=== PATIENT | male | born 1945 | race Caucasian/White ===

== ENCOUNTER 2017-11-01 07:26 | Inpatient (IN) | payer OTHER ==
[~2017-11-01] VITALS: Ht 177.8 cm; Wt 79.3 kg
[2017-11-01 08:50] VITALS: BP 158/88
[2017-11-01] MEDS ORDERED: DIVA500T17 PO (08:55)
[2017-11-01] MEDS ORDERED: VERA240T86 PO (08:55)
[2017-11-01] MEDS ORDERED: HYDR25TA6 PO (08:55)
[2017-11-01] MEDS ORDERED: ROSU20TA PO (08:55)
[2017-11-01] MEDS ORDERED: OMEP-110 PO (08:55)
[2017-11-01] MEDS ORDERED: LACTATED RINGERS 1,000 ML IV SCH (09:00)
[2017-11-01] MEDS ORDERED: GABAPENTIN 300 MG CAPSULE PO ONE (09:30)
[2017-11-01] MEDS ORDERED: OxyconTIN ER 10 MG TAB.ER PO ONE (09:30)
[2017-11-01] MEDS ORDERED: ACETAMINOPHEN 500 MG TABLET PO ONE (09:30)
[2017-11-01] MEDS ORDERED: MIDAZOLAM 1 MG/ML, 2ML ONE (09:41)
[2017-11-01] MEDS ORDERED: FENTANYL PF 250 MCG/5ML ONE (09:41)
[2017-11-01] MEDS ORDERED: BUPIVACAINE 0.25% ONE (09:57)
[2017-11-01] MEDS ORDERED: BACITRACIN 50,000 UNIT ONE (09:57)
[2017-11-01] MEDS ORDERED: EPINEPHRINE 1 MG/ML, 1ML ONE (09:57)
[2017-11-01] MEDS ORDERED: THROMBIN 5,000 UNIT VIAL TP ONE (09:57)
[2017-11-01] MEDS ORDERED: DEXAMETHASONE 4 MG/ML, 1ML ONE (10:18)
[2017-11-01] MEDS ORDERED: SUCCINYLCHOLINE 20 MG/ML, 10ML ONE (10:18)
[2017-11-01] MEDS ORDERED: PROPOFOL 10 MG/ML, 20ML ONE (10:18)
[2017-11-01] MEDS ORDERED: CEFAZOLIN 1,000 MG ONE (10:18)
[2017-11-01] MEDS ORDERED: ONDANSETRON 2MG/ML, 2ML ONE (10:18)
[2017-11-01] MEDS ORDERED: PROMETHAZINE 25 MG/ML, 1ML IV PRN (11:00)
[2017-11-01] MEDS ORDERED: HYDROmorphone 1 MG/ML, 1ML IV PRN (11:00)
[2017-11-01] MEDS ORDERED: hydrALAzine 20 MG/ML, 1ML IV PRN (11:00)
[2017-11-01] MEDS ORDERED: OXYcodone 5 MG/5 ML ORAL.SOL UDC PO PRN (11:00)
[2017-11-01] MEDS ORDERED: ALBUTEROL SULFATE 2.5 MG/3 ML NPPB PRN (11:00)
[2017-11-01] MEDS ORDERED: LABETALOL 5MG/ML, 20ML IV PRN ×2 (11:00→14:00)
[2017-11-01] MEDS ORDERED: FENTANYL PF 100 MCG/2ML ONE (12:22)
[2017-11-01] MEDS ORDERED: DIAZEPAM 5 MG TABLET ONE (12:26)
[2017-11-01] MEDS: FENTANYL PF 100 MCG/2ML IV PRN ×2 (12:30→12:50)
[2017-11-01] MEDS ORDERED: DIAZEPAM 5 MG TABLET PO PRN (13:00)
[2017-11-01] MEDS ORDERED: hydrALAzine 20 MG/ML, 1ML ONE (13:15)
[2017-11-01] MEDS ORDERED: METHOCARBAMOL 750 MG TABLET PO PRN (14:00)
[2017-11-01] MEDS ORDERED: MEPERIDINE/PF 100 MG/ML IM PRN (14:00)
[2017-11-01] MEDS ORDERED: DIPHENHYDRAMINE 50 MG CAPSULE PO PRN (14:00)
[2017-11-01] MEDS ORDERED: HYDROcodone/APAP 5/325 TABLET PO PRN (14:00)
[2017-11-01] MEDS ORDERED: ONDANSETRON 2MG/ML, 2ML IV PRN (14:00)
[2017-11-01] MEDS ORDERED: DIPHENHYDRAMINE 50 MG/ML, 1ML IM PRN (14:00)
[2017-11-01] MEDS ORDERED: BISACODYL 10 MG SUPP PR PRN (14:00)
[2017-11-01] MEDS ORDERED: MAGNESIUM HYDROXIDE 8%, 30ML UDC PO PRN (14:00)
[2017-11-01 19:15] VITALS: BP 117/81
[2017-11-01] MEDS: CEFAZOLIN PMX 1GM/50ML 50 ML IVPB SCH (19:36)
[2017-11-01] MEDS: NS + 20MEQ KCL 1,000 ML IV SCH (19:36)
[2017-11-01] MEDS ORDERED: ATORVASTATIN 40 MG TABLET PO SCH (21:00)
[2017-11-02 00:17] VITALS: BP 102/68
[2017-11-02] MEDS: CEFAZOLIN PMX 1GM/50ML 50 ML IVPB SCH (03:55)
[2017-11-02 04:20] VITALS: BP 123/83
[2017-11-02 05:28] LABS: ANION GAP 6 mmol/L (5-15); CALCIUM 9.1 mg/dL (8.5-10.1); CHLORIDE 105 mmol/L (98-107); CREATININE 1.08 mg/dL (0.7-1.3)
[2017-11-02 05:48] LABS: BASOPHILS # (AUTO) 0.02 x10^3/uL (0-0.1); BASOPHILS % (AUTO) 0 % (0-1); EOSINOPHILS # (AUTO) 0.05 x10^3/uL (0-0.4); EOSINOPHILS % (AUTO) 1 % (1-7); LYMPHOCYTES # (AUTO) 1.76 x10^3/uL (1-3.4); LYMPHOCYTES % (AUTO) 20 % (22-44); MD NO; MEAN CORPUSCULAR HEMOGLOBIN 31.1 pg (27.5-34.5); MEAN CORPUSCULAR HGB CONC 33.5 g/dL (33.2-36.2); MEAN PLATELET VOLUME 9.7 fL (7.4-10.4); MONOCYTES # (AUTO) 0.77 x10^3/uL (0.2-0.8); MONOCYTES % (AUTO) 9 % (2-9); NEUTROPHILS # (AUTO) 6.14 x10^3/uL (1.8-6.8); NEUTROPHILS % (AUTO) 70 % (42-75); PLATELET COUNT 168 x10^3/uL (130-400); RED BLOOD COUNT 4.11 x10^6/uL (4.38-5.82); RED CELL DISTRIBUTION WIDTH 13.4 % (9.4-14.8)
[2017-11-02] MEDS ORDERED: OMEPRAZOLE 20 MG CAPSULE.DR PO SCH (07:30)
[2017-11-02 07:43] VITALS: BP 117/78
[2017-11-02] MEDS ORDERED: OXYC-302 PO (08:30)
[2017-11-02] MEDS ORDERED: METH750T87 PO (08:30)
[2017-11-02] MEDS ORDERED: HYDROCHLOROTHIAZIDE 25 MG TABLET PO SCH (09:00)
[2017-11-02] MEDS ORDERED: DIVALPROEX 500 MG TAB.ER.24H PO SCH (09:00)
[2017-11-02] MEDS ORDERED: SENNA/DOCUSATE TABLET PO SCH (09:00)
[2017-11-02] MEDS ORDERED: VERAPAMIL ER 240MG TABLET.ER PO SCH (09:00)
[2017-11-02] MEDS: OXYcodone/APAP 5/325MG TABLET PO PRN ×2 (09:08→13:24)
[2017-11-02] MEDS: NS + 20MEQ KCL 1,000 ML IV SCH (09:20)
[2017-11-02 13:25] VITALS: BP 112/72
== END 2017-11-02 14:30 | disposition home or self-care (01) | DRG 517 ==
LOC: OUT 07:26 → 4NOR 13:50 → OUT 13:52 → 4NOR 13:53 → DCLOUNGE 11-02 14:30
PROVIDERS: ADMIT Neurological Surgery; ATTEND Neurological Surgery
PROC: 01NR0ZZ Release Sacral Nerve, Open Approach (ICD-10-PCS; 2017-11-01)
PROC: 01NB0ZZ Release Lumbar Nerve, Open Approach (ICD-10-PCS; principal; 2017-11-01 10:30)
DX: M48.061 Spinal stenosis, lumbar region without neurogenic claudication (principal); M47.26 Other spondylosis with radiculopathy, lumbar region; I10 Essential (primary) hypertension; E78.5 Hyperlipidemia, unspecified; Z87.891 Personal history of nicotine dependence; Z79.899 Other long term (current) drug therapy
CPT/HCPCS: 36415; 72100; 80048; 85025; J0171; J0690; J1100; J2250; J2270; J2405; J2704; J3010; J3480; J3490; J0330; J0360; J7120